=== PATIENT | female | born 1960 | race Caucasian/White ===

== ENCOUNTER → 2024-12-09 09:48 | Outpatient (REF) | payer MEDICARE, OTHER, SELFPAY | LOC: RCS 09:48 | PROVIDERS: ATTENDING PHYSICIAN Internal Medicine Cardiovascular Disease; FAMILY PHYSICIAN Internal Medicine | DX: R07.89 Other chest pain (principal) | CPT/HCPCS: 93017; 93350 ==

== ENCOUNTER 2025-08-20 13:39 | Emergency (ER) | payer MEDICARE, OTHER, SELFPAY ==
[2025-08-20 13:45] VITALS: BP 149/93
[2025-08-20] MEDS: AUGMENTIN 875 MG/125 MG 1 TABLET PO (16:35)
[2025-08-20] MEDS: ADACEL 0.5 ML IM (16:35)
--- NOTE | 2025-08-20 23:35 | ED.SKININJ ---
HPI-Injury
General
Chief Complaint: Bite
Source: patient
Exam Limitations: none
Time Seen by Provider: 08/20/25 15:37
Nursing documentation reviewed up to this point in time: agreed with
History of Present Illness-Injury
Is this injury a work related problem?: No
Is pt an associate of [facility]?: No
Initial Injury comments:
Patient to ED after being bit by neighnbors dog. Sustaine bite to right forearm. DOg is UTD with rabies series. Incident occured just [employer]
Past History
Past History
ED Past Medical History: Hypercholesterolemia
ED Past Surgical History: None
Social History
Tobacco: Non-smoker
Alcohol: Daily (wine or Beer 1)
Personal:
Living: with family
Review of Systems
Review of Systems
Allergies reviewed?: Yes
All Other Systems: ROS reviewed and negative except as documented in HPI and ROS
Constitutional: Reports no symptoms
Musculoskeletal: Reports no symptoms
Skin: Reports other (Dog bite right forearm)
Neurological: Reports no symptoms
Psychiatric: Reports no symptoms
Skin Exam
Bite
Right Forearm #1:
Type: animal
Skin has: puncture wounds (multiple puncture wounds on forearm)
Surrounding area around bite has: no evidence of erythema
Distal skin color and temperature: normal-warm & good color
Normal distal neurovascular exam: Yes
Right Forearm #2:
Type: animal
Skin has: full thickness laceration
Laceration length in cm: 1
Surrounding area around bite has: no evidence of erythema
Distal skin color and temperature: normal-warm & good color
Normal distal neurovascular exam: Yes
Right forearm #3:
Type: animal
Skin has: full thickness laceration
Laceration length in cm: 4
Surrounding area around bite has: no evidence of erythema
Distal skin color and temperature: normal-warm & good color
Normal distal neurovascular exam: Yes
Phy Exam
General Physical Exam
General Presentation: well appearing and mild distress
General age: appears stated age
General Skin: warm and dry
General Habitus: normal
General Mental: alert
Musculoskeletal Exam
Musculoskeletal Exam: full ROM and neuro vasc intact
Skin Exam
Skin Exam: normal color, warm/dry and no rash
Psychiatric Exam
Psychiatric Exam: normal mood/affect
Course
Orders/Labs/Results
Orders:
Orders
08/20/25 16:23
Amoxicillin 875 mg/Clav 125 mg [Augmentin 875 mg/125 mg] 1 tablet PO NOW STA
Tetanus/Diphth/Acelpertussis [Adacel] 0.5 ml IM .ONCE ONE
Vital Signs
Initial and Last Documented VS:
Initial Vital Signs
Temp Pulse Resp BP Pulse Ox
98.0 F 90 20 149/93 96
08/20/25 13:45 08/20/25 13:45 08/20/25 13:45 08/20/25 13:45 08/20/25 13:45
Last Documented Vital Signs
Temp Pulse Resp BP Pulse Ox
98.0 F 90 20 149/93 96
08/20/25 13:45 08/20/25 13:45 08/20/25 13:45 08/20/25 13:45 08/20/25 23:35
Procedures
Laceration Closure
Right forearm #3:
Status of Wound: clean
Description of Wound Edges: sharp
Preparation: cleaned with soap & water (flush) and cleaned with Betadine
Anesthesia: 1% Lidocaine with epi
Revision/Debridement: routine- no revision
Wound exploration: no tendon involvement
Type of Closure: single layer closure
Skin Closure Material: 4-0 nylon
*Pulse Oximetry
SaO2: 96
Oxygen Mode of Delivery: Room air
Patient hypoxic: no
*Critical Care Note
Total Time (30-74mins, 75-104mins- exclusive of procedures): Not Applicable
Update Note
Update Note:
Patient to ED after dog bite to right forearm. Mutiple puncture wounds and bruising to right forearm. WOunds cleansed with NSS and betadine by RN. Forearm wounds 2 and 3 flushed extensively with NSS, cleansed with Betadine. Steristrip applied to
wound #2. Loose suture repair to wound#3. She is discharge dhome and deepika follow up with PCP. Augmentin started in ED.
ED Attending Note
-
Portions of this chart may have been created with voice recognition software.� Occasional wrong word or��sound alike� substitutions may have occurred due to the inherent limitations of voice recognition software.
Discharge Plan
Departure
Patient Disposition: Home (Routine Discharge)
Date of Disposition: 08/20/25
Time of Disposition: 16:24
Patient with high blood pressure during this ER visit?: No
Condition: Good
Covid-19: Not Applicable
Discharge Problem:
Dog bite of forearm
Instructions: Animal Bites (DC), Wound Care (DC), Laceration Repair With Stitches (DC)
Prescriptions:
New
amoxicillin-pot clavulanate 875-125 mg tablet
1 tab PO BID Qty: 14 0RF
Referrals:
Ingris Smalls MD [Family Provider, Internal Medicine]
Referral Note: Sutures can be removed in 7-10 days
Interventions
Interventions:
*General Assessment Last Done: 08/20/25 13:45
*Nursing Disposition Last Done: 08/20/25 17:00
ED-Skin Assessment Last Done: 08/20/25 15:12
Discharge Date and Time
Discharge Date/Time: 08/20/25 17:01
Print Language: UGANDAN
== END 2025-08-20 17:01 | disposition home or self-care (01) ==
LOC: EMR 13:39
PROVIDERS: EMERGENCY PHYSICIAN Emergency Medicine; FAMILY PHYSICIAN Internal Medicine
DX: S51.859A Open bite of unspecified forearm, initial encounter (principal); W54.0XXA Bitten by dog, initial encounter; Z23 Encounter for immunization; E78.00 Pure hypercholesterolemia, unspecified
CPT/HCPCS: 99282; 12002; 90471; 90715